=== PATIENT | female | born 1955 | race Caucasian/White ===

== ENCOUNTER → 2016-10-28 | Outpatient (CLI) | payer MEDICARE, MEDICAID | END | disposition home or self-care (01) | LOC: GMAJ 14:33 | PROVIDERS: ATTEND Family Medicine | DX: E03.9 Hypothyroidism, unspecified (principal) ==

== ENCOUNTER → 2016-11-02 | Outpatient (CLI) | payer MEDICARE, MEDICAID ==
--- NOTE | 2016-11-02 10:06 | MRI ---
EXAM DESCRIPTION: Cervical Spine CLINICAL HISTORY: 61 years, Female, RADICULOPATHY, neck pain radiating into both upper extremities, numbness in hands COMPARISON: None TECHNIQUE: Multiplanar multi sequence images of the cervical spine were obtained without gadolinium contrast. FINDINGS: There is loss of physiologic cervical lordosis. No vertebral body fracture or subluxation.There is no bone marrow edema. Alignment of the craniocervical junction is anatomic, and visualized portions of the brainstem and spinal cord are unremarkable. [The paraspinal soft tissues are unremarkable.] At C2-3, the intervertebral disc and facet joints are well maintained. At C3-4, there is only slight bilateral facet joint degeneration without posterior disc bulging, central canal or neuroforaminal stenosis. At C4-5, right-sided uncovertebral joint hypertrophy results in moderate right-sided neuroforaminal stenosis. There is mild anterior disc bulging without significant posterior disc bulging, facet joint degeneration or neuroforaminal stenosis. The central canal is at the lower limits of normal size, measuring 1 cm AP diameter. At C5-6, there is disc desiccation with anterior disc bulging. Mild broad-based posterior disco-osteophytic ridging is also noted. The facet joints are well maintained, but findings result in moderately advanced central canal and mild bilateral neuroforaminal stenosis. The central canal measures 7 or 8 mm AP diameter. At C6-7, there is anterior disc bulging. Broad-based posterior disco-osteophytic ridging is also noted. There is no facet joint hypertrophy, and findings result in moderate central canal and only slight bilateral neuroforaminal stenosis. At C7-T1, the intervertebral disc and facet joints are unremarkable. IMPRESSION: Broad-based posterior disco-osteophytic ridging with facet and/or uncovertebral joint hypertrophy at C4-5, C5-6 and C6-7 resulting in central canal and neuroforaminal stenosis as detailed above. Electronically signed by: Fredrick Julian MD 11/02/2016 10:06 AM DELI MANAGER
--- NOTE | 2016-11-02 10:12 | MRI ---
EXAM DESCRIPTION: Lumbar Spine w/o Contrast CLINICAL HISTORY: 61 years, Female, RADICULOPATHY low back pain COMPARISON: None TECHNIQUE: Multiplanar multi sequence images of the lumbar spine were obtained without gadolinium contrast. FINDINGS: Vertebral body height and alignment are well maintained. No bone marrow signal abnormalities are noted. The conus lies posterior to the L1 body, and the cauda equina is unremarkable. The paraspinal and visualized retroperitoneal soft tissues are unremarkable. At L1-2, there is disc desiccation with concentric disc bulging, most prominent anteriorly. Mild bilateral facet joint degeneration is also noted, but there is no central canal or neuroforaminal stenosis. At L2-3, there is disc desiccation with mild concentric disc bulging. Bilateral facet joint degeneration and ligament flavum thickening are also noted, all resulting in only slight bilateral neuroforaminal stenosis. No definite nerve root abutment. At L3-4, there is mild concentric disc bulging with bilateral facet joint degeneration and ligament thickening resulting in mild central canal and slight bilateral neuroforaminal stenosis. No definite nerve root abutment. At L4-5, there is bilateral facet joint degeneration with ligamentum flavum thickening. Minimal concentric disc bulging, all resulting in only mild central canal stenosis. At L5-S1, there is bilateral facet joint degeneration and ligamentum thickening. Slight concentric disc bulging, all without central canal or significant neuroforaminal stenosis. An osteophyte arises the anterior aspect of the left L5-S1 facet results in mass effect on the thecal sac and approaches but does not definitely abut the left S1 nerve root in the lateral recess. IMPRESSION: Disc bulging, facet joint degeneration and ligamentum flavum thickening at several levels in the lumbar spine resulting in mild central canal and neural foraminal stenosis as detailed above. No definite nerve root abutment. Electronically signed by: Fredrick Julian MD 11/02/2016 10:11 AM STUDIO COORDINATOR
== END | disposition home or self-care (01) ==
LOC: MRI 07:28
PROVIDERS: ATTEND Family Medicine
DX: M50.10 Cervical disc disorder with radiculopathy, unspecified cervical region (principal); M54.16 Radiculopathy, lumbar region

== ENCOUNTER 2016-11-20 17:42 | Emergency (ER) | payer MEDICARE, MEDICAID ==
[2016-11-20 17:59] VITALS: TEMP 99.2
[2016-11-20] MEDS ORDERED: POVIDONE IODINE 10 % 15 ML UD TOP ONE (18:49)
[2016-11-20] MEDS ORDERED: LIDOCAINE 1% W/ EPINEPHRINE 20 ML VIAL INJ ONE (18:49)
[2016-11-20] MEDS ORDERED: POVIDONE IODINE 5% TOP ONE (19:02)
[2016-11-20] MEDS ORDERED: LIDOCAINE 2% W/ EPINEPHRINE 20 ML VIAL INJ ONE (19:02)
--- NOTE | 2016-11-20 19:16 | CT ---
EXAM DESCRIPTION: Head CLINICAL HISTORY: fall/lac L forehead struck concrete step COMPARISON: None Available. TECHNIQUE: Contiguous axial images of the brain were obtained without the administration of intravenous contrast. FINDINGS: There is no acute intracranial hemorrhage or mass effect. Areas of low-attenuation within the periventricular and subcortical white matter are nonspecific but suggestive small vessel disease. There is atherosclerosis. Ventricular system is within normal limits. There is adequate dela cruz-white matter differentiation. There is a laceration within the left forehead. There is no skull fracture. The visualized paranasal sinuses and mastoid air cells are within normal limits. IMPRESSION: No acute intracranial abnormalities. Electronically signed by: Kane Em MD 11/20/2016 7:15 PM CDT
[2016-11-20] MEDS ORDERED: NEOMYCIN-BACITRACIN-POLYMYXIN 0.9 GM UD TOP ONE ×2 (19:47→19:48)
--- NOTE | 2016-11-20 20:14 | ED.PDOC ---
History of Present Illness - General Chief Complaint: Trauma Stated Complaint: HEAD LAC POST FALL Time Seen by Provider: 11/20/16 17:50 Source: patient, RN notes reviewed, Vital Signs reviewed Exam Limitations: no limitations - History of Present Illness Initial Comments: Patient tripped going up some stairs at home and hit her L forehead on the step. She has a cut to her L eyebrow and is feeling dizzy. No LOC Occurred: just prior to arrival Severity: moderate Pain Location: head Method of Injury: fall Improving Factors: cold therapy, other - pressure Worsening Factors: nothing Loss of Consciousness: no loss of consciousness Associated Symptoms (Fall): lightheadedness Allergies/Adverse Reactions: Allergies NO KNOWN ALLERGY Allergy (Verified 01/09/14 07:47) Home Medications: Ambulatory Orders Alprazolam 0.25 mg PO PRN 01/08/14 Alprazolam [Xanax] 0.25 mg PO .[id number] PRN 01/08/14 Amlodipine Besylate 5 mg PO DAILY 01/08/14 Calcium Carbonate-Vitamin D [Calcium 600+D 600-400 mg-Unit] 2 tab PO DAILY 01/08 Hydrochlorothiazide 12.5 mg PO DAILY 01/08/14 Levothyroxine Sodium 175 mcg PO DAILY 01/08/14 Memantine [Namenda] 10 mg PO DAILY 01/08/14 Metoprolol Succinate [Metoprolol Succinate ER] 100 mg PO DAILY 01/08/14 Omeprazole 20 mg PO BID 01/08/14 Valsartan [Diovan] 320 mg PO DAILY 01/08/14 Venlafaxine Xr [Effexor Xr] 150 mg PO DAILY 01/08/14 HYDROcodone 5MG/APAP 325MG [[place] 5/325] 1 ea PO .Q4H PRN #16 tab 03/19/14 Rivaroxaban [Xarelto] 10 mg PO QD #8 tab 06/04/15 Review of Systems - Review of Systems Constitutional: States: no symptoms reported EENTM: States: no symptoms reported. Denies: blurred vision, double vision, ear discharge, nose congestion Respiratory: States: no symptoms reported Cardiology: States: no symptoms reported Gastrointestinal/Abdominal: States: no symptoms reported. Denies: nausea Musculoskeletal: States: no symptoms reported. Denies: back pain, neck pain Skin: States: see HPI, other - 3cm lac to L eyebrow Neurological: States: other - Dizziness. Denies: headache, numbness, paresthesia, pre-existing deficit, tingling, tremors, weakness Endocrine: States: no symptoms reported Past Medical History (General) - Patient Medical History Hx Seizures: No Hx Stroke: Yes - x2 tia's Hx Dementia: Yes Hx Asthma: No Hx of COPD: No Hx Cardiac Disorders: No Hx Congestive Heart Failure: Yes Hx Pacemaker: No Hx Hypertension: No Hx Thyroid Disease: Yes Hx Diabetes: Yes Hx Gastroesophageal Reflux: Yes Hx Renal Disease: No Hx Cancer: Yes - BASAL OF LEFT EYE Hx of HIV: No Hx Hepatitis C: No Hx MRSA: No MRSA Source:: Wound Surgical History: cholecystectomy, Hysterectomy - Vaccination History Hx Tetanus, Diphtheria Vaccination: Yes Hx Influenza Vaccination: Yes Hx Pneumococcal Vaccination: Yes - Social History Hx Tobacco Use: Yes Hx Chewing Tobacco Use: No Hx Alcohol Use: No Hx Substance Use: No Hx Substance Use Treatment: No Hx Depression: Yes Hx Physical Abuse: No Hx Emotional Abuse: No Hx Suspected Abuse: No - Female History Patient : No Family Medical History - Family History Father Living Status: Age at (years of age): 57 Hx Family Stroke: Yes Hx Cardiac Disease: Yes Mother Living Status: Age at (years of age): 39 Hx Family Asthma: Yes Hx Family Congestive Heart Failure: Yes Physical Exam - Physical Exam General Appearance: Alert, Comfortable, No apparent distress, Well Developed, Well Groomed, Well Hydrated, Well Nourished Head Injury: active bleeding, ecchymosis, lacerations - 3cm lac to L eyebrow, swelling, tenderness, other - No lira sign, no raccoon eyes Eye Exam: bilateral normal ENT Exam: hearing grossly normal, no dental injury, other - No blood behind TM's Neck Exam: non-tender, full range of motion, normal alignment, normal inspection Cardiovascular/Respiratory: regular rate, rhythm, no M/R/G, no JVD, normal breath sounds, no respiratory distress Extremity Exam: no evidence of injury, normal range of motion, non-tender Neurologic: special agent II-XII nml as tested, no motor/sensory deficits, alert, normal mood/affect, oriented x 3 Skin Exam: other - L eyebrow - 3 cm laceration - Bernadetet Coma Score Best Eye Response (Sells): (4) open spontaneously Best Verbal Response (Bernadette): (5) oriented Best Motor Response (Sells): (6) obeys commands Bernadette Total: 15 Progress - EKG/XRAY/CT CT Ordered: Yes Procedures - Laceration/Wound Repair Left Frontal Wound Length (cm): 3 Wound's Depth, Shape: superficial, linear Wound Explored: no foreign body removed Betadine Prep?: Yes Anesthesia: Lidocaine w/ Epi Volume Anesthetic (cc's): 5 Wound Debrided: minimal Wound Repaired With: sutures Suture Size/Type: 5:0, prolene Number of Sutures: 8 Layer Closure?: No Sterile Dressing Applied?: Yes - Antibiotic oint and pressure dressing Departure - Departure Clinical Impression: Laceration of face without complication Qualifiers: Encounter type: initial encounter Qualifier Code: (S01.81XA) Laceration without foreign body of other part of head, initial encounter Time of Disposition: 20:17 Disposition: Discharge to Home or Self Care Condition: Good Departure Forms: ED Discharge - Pt. Copy, Patient Portal Self Enrollment Instructions: DI for Laceration Repair -- Simple Diet: resume usual diet Activity: increase activity as tolerated Referrals: Florian Chinchilla MD [Primary Care Provider] - 11/26/16 (5-7 days for suture removal) Home Medications: Ambulatory Orders Alprazolam 0.25 mg PO PRN 01/08/14 Alprazolam [Xanax] 0.25 mg PO .[id number] PRN 01/08/14 Amlodipine Besylate 5 mg PO DAILY 01/08/14 Calcium Carbonate-Vitamin D [Calcium 600+D 600-400 mg-Unit] 2 tab PO DAILY 01/08 Hydrochlorothiazide 12.5 mg PO DAILY 01/08/14 Levothyroxine Sodium 175 mcg PO DAILY 01/08/14 Memantine [Namenda] 10 mg PO DAILY 01/08/14 Metoprolol Succinate [Metoprolol Succinate ER] 100 mg PO DAILY 01/08/14 Omeprazole 20 mg PO BID 01/08/14 Valsartan [Diovan] 320 mg PO DAILY 01/08/14 Venlafaxine Xr [Effexor Xr] 150 mg PO DAILY 01/08/14 HYDROcodone 5MG/APAP 325MG [[place] 5/325] 1 ea PO .Q4H PRN #16 tab 03/19/14 Rivaroxaban [Xarelto] 10 mg PO QD #8 tab 06/04/15
[2016-11-20 20:58] VITALS: BP 132/77; O2SAT 99
== END 2016-11-20 20:28 | disposition home or self-care (01) ==
LOC: ER 17:42
DX: S01.112A Laceration without foreign body of left eyelid and periocular area, initial encounter (principal); E07.9 Disorder of thyroid, unspecified; E11.9 Type 2 diabetes mellitus without complications; K21.9 Gastro-esophageal reflux disease without esophagitis; Z85.840 Personal history of malignant neoplasm of eye; Z86.73 Personal history of transient ischemic attack (TIA), and cerebral infarction without residual deficits; Z87.891 Personal history of nicotine dependence; Z79.899 Other long term (current) drug therapy; Z79.01 Long term (current) use of anticoagulants; W10.9XXA Fall (on) (from) unspecified stairs and steps, initial encounter; Y92.009 Unspecified place in unspecified non-institutional (private) residence as the place of occurrence of the external cause

== ENCOUNTER 2016-12-07 08:55 | Day surgery (SDC) | payer MEDICARE, MEDICAID ==
[2016-12-07 13:30] VITALS: O2SAT 98
[2016-12-07] MEDS ORDERED: LIDOCAINE 1% MPF 5 ML VIAL INJ ONE ×2 (14:08→14:10)
[2016-12-07] MEDS ORDERED: SODIUM BICARBONATE VIAL 50 MEQ/50 ML VIAL IV ONE (14:08)
[2016-12-07] MEDS ORDERED: SODIUM CHLORIDE 0.9% 10 ML VIAL INJ ONE (14:10)
[2016-12-07] MEDS ORDERED: methylPREDNISolone ACETATE 80 MG/ML VIAL INJ ONE (14:10)
[2016-12-07 14:29] VITALS: BP 150/112; TEMP 98.6
== END 2016-12-07 14:20 | disposition home or self-care (01) ==
LOC: AMB 08:55 → YCFC.O 08:55 → EDSTATUS 14:09 → AMB 14:20
PROVIDERS: ATTEND Anesthesiology Pain Medicine
DX: M54.5 Low back pain (principal); M51.16 Intervertebral disc disorders with radiculopathy, lumbar region; F17.210 Nicotine dependence, cigarettes, uncomplicated; E11.9 Type 2 diabetes mellitus without complications; I10 Essential (primary) hypertension; M50.30 Other cervical disc degeneration, unspecified cervical region; Z79.899 Other long term (current) drug therapy; Z79.891 Long term (current) use of opiate analgesic
CPT/HCPCS: 62323; 76000; 80307; 80354; 80358; 80365; J1030

== ENCOUNTER 2017-01-04 06:00 | Day surgery (SDC) | payer MEDICARE, MEDICAID ==
[2017-01-04] MEDS ORDERED: SODIUM CHLORIDE 0.9% 10 ML VIAL ONE (11:16)
[2017-01-04] MEDS ORDERED: methylPREDNISolone ACETATE 80 MG/ML VIAL ONE (11:16)
[2017-01-04] MEDS ORDERED: SODIUM BICARBONATE VIAL 50 MEQ/50 ML VIAL ONE (11:16)
[2017-01-04] MEDS: LIDOCAINE 1% MPF 5 ML VIAL ONE ×2 (13:06→13:08)
[2017-01-04 13:19] VITALS: BP 126/76; TEMP 97; O2SAT 97
== END 2017-01-04 13:20 | disposition home or self-care (01) ==
LOC: AMB 06:00
PROVIDERS: ATTEND Anesthesiology Pain Medicine
DX: M51.16 Intervertebral disc disorders with radiculopathy, lumbar region (principal); M54.5 Low back pain
CPT/HCPCS: 62323; 76000; J1030

== ENCOUNTER → 2017-03-15 | Outpatient (CLI) | payer MEDICARE, MEDICAID | LOC: GMAJ 10:13 | PROVIDERS: ATTEND Family Medicine | DX: E03.9 Hypothyroidism, unspecified (principal) ==

== ENCOUNTER → 2017-05-04 | Outpatient (CLI) | payer MEDICARE, MEDICAID | END | disposition home or self-care (01) | LOC: GMAJ 14:28 | PROVIDERS: ATTEND Family Medicine | DX: E03.9 Hypothyroidism, unspecified (principal) ==

== ENCOUNTER 2017-06-04 16:50 | Emergency (ER) | payer MEDICARE, MEDICAID ==
[2017-06-04 17:13] VITALS: TEMP 97.1
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
[2017-06-04] MEDS ORDERED: LIDOCAINE 1% 10 ML VIAL INJ ONE (17:33)
[2017-06-04] MEDS ORDERED: traMADol 37.5MG/APAP 325MG 1 EA TAB PO ONE (17:50)
--- NOTE | 2017-06-04 18:03 | CT ---
EXAM DESCRIPTION: Head CLINICAL HISTORY: HEAD TRAUMA COMPARISON: April 22, 2017 TECHNIQUE: Contiguous axial images of the brain were obtained without the administration of intravenous contrast.This exam was performed according to our departmental dose-optimization program, which includes automated exposure control, adjustment of the mA and/or kV according to patient size and/or use of iterative reconstruction technique. FINDINGS: There is no acute intracranial hemorrhage or mass effect. Areas of low attenuation in the periventricular and subcortical white matter are nonspecific but be secondary to small vessel disease, unchanged compared with the prior exam. There is atherosclerosis. There is an old lacunar infarct within the left basal ganglia. There is generalized atrophy. Ventricular system is within normal limits. There is adequate dela cruz-white matter differentiation. There is no skull fracture. The visualized paranasal sinuses and mastoid air cells are within normal limits. IMPRESSION: Stable examination. No acute intracranial abnormalities. Electronically signed by: Kane Em MD 06/04/2017 6:01 PM CDT
[2017-06-04] MEDS ORDERED: TETANUS-DIPHTHERIA TOXOIDS (TD 1 EA SYG IM ONE (18:05)
--- NOTE | 2017-06-04 18:07 | CT ---
EXAM DESCRIPTION: CT CERVICAL SPINE CLINICAL HISTORY: HEAD TRAUMA COMPARISON: None Available. TECHNIQUE: Contiguous axial images of the cervical spine were obtained followed by reconstruction images.This exam was performed according to our departmental dose-optimization program, which includes automated exposure control, adjustment of the mA and/or kV according to patient size and/or use of iterative reconstruction technique. FINDINGS: There is no acute fracture or subluxation. There is intervertebral disc space narrowing and osteophytic formation at C5-C6, C6-C7 and C7-T1. There is right neural foramina narrowing at C4-C5, and bilateral neural foramina narrowing at C5-C6. The prevertebral soft tissues are within normal limits. Visualized ascending aorta measured 4.1 cm. Recommend further imaging as indicated. IMPRESSION: No acute fracture or subluxation. Degenerative changes. Electronically signed by: Kane Em MD 06/04/2017 6:05 PM CDT
[2017-06-04] MEDS ORDERED: TETANUS,DIPHTHERIA,PERTUSSIS 1 EA SYG IM ONE (18:19)
[2017-06-04] MEDS ORDERED: NEOMYCIN-BACITRACIN-POLYMYXIN 0.9 GM UD TOP ONE (18:27)
[2017-06-04 18:38] VITALS: BP 160/92; O2SAT 92
== END 2017-06-04 18:35 | disposition home or self-care (01) ==
LOC: ER 16:50
DX: S01.01XA Laceration without foreign body of scalp, initial encounter (principal); I10 Essential (primary) hypertension; E11.9 Type 2 diabetes mellitus without complications; K21.9 Gastro-esophageal reflux disease without esophagitis; Z23 Encounter for immunization; Z86.73 Personal history of transient ischemic attack (TIA), and cerebral infarction without residual deficits; Z85.89 Personal history of malignant neoplasm of other organs and systems; W20.8XXA Other cause of strike by thrown, projected or falling object, initial encounter; Y92.9 Unspecified place or not applicable

== ENCOUNTER 2017-06-12 17:51 | Emergency (ER) | payer MEDICARE, MEDICAID ==
[2017-06-12 18:03] VITALS: TEMP 98.8
[2017-06-12] MEDS ORDERED: PANTOPRAZOLE SODIUM IV 40 MG VIAL IV ONE (18:10)
[2017-06-12] MEDS ORDERED: LIDOCAINE VIS-MYLANTA 30 ML UD PO ONE (18:10)
[2017-06-12] MEDS ORDERED: ONDANSETRON INJ 4 MG/2 ML VIAL IV ONE (18:26)
[2017-06-12] MEDS ORDERED: PROMETHAZINE HCL INJ 25 MG in SODIUM CHLORIDE 0.9% 50ML 50 ML IVPB ONE (19:04)
[2017-06-12] MEDS ORDERED: PROMETHAZINE HCL INJ 25 MG/ML VIAL ONE (19:12)
[2017-06-12] MEDS ORDERED: SODIUM CHLORIDE 0.9% 50ML 50 ML ONE (19:13)
[2017-06-12] MEDS ORDERED: SUCRALFATE 1 GM/10 ML 1 GM UD PO ONE (19:15)
--- NOTE | 2017-06-12 19:27 | RAD ---
EXAM: Abdomen Series CLINICAL INDICATION: 61-year-old female with chest and abdominal pain. TECHNIQUE: Single view, PA chest was obtained. Two views of the abdomen were obtained in upright and supine positioning. COMPARISON: Chest radiograph 01/08/2014. FINDINGS: Chest: Stable prominent cardiac and mediastinal silhouette. Heart size is top normal. Tortuous atherosclerotic thoracic aorta. Lungs are clear without focal opacity, pneumothorax or pleural effusions. Elevation of the RIGHT hemidiaphragm. Abdomen: Gas is seen within normal caliber large bowel. Diffuse paucity of small bowel gas. No free air is identified. Pelvic phleboliths. LEFT upper quadrant surgical sutures and cholecystectomy clips at the RIGHT upper quadrant. The osseous structures reveal degenerative change. IMPRESSION: 1. No acute cardiopulmonary abnormalities. 2. Nonspecific abdominal bowel gas pattern. Electronically signed by: Yolanda Blackwood MD 06/12/2017 7:26 PM CDT Workstation: [id number]
[2017-06-12] MEDS ORDERED: ALUMINUM & MAGNESIUM HYDROXIDE 30 ML UD PO ONE (21:27)
[2017-06-12 22:05] VITALS: BP 128/80; O2SAT 97
--- NOTE | 2017-06-12 22:14 | ED.PDOC ---
History of Present Illness - General Chief Complaint: Chest Pain/NE Stated Complaint: Chest pressure Time Seen by Provider: 06/12/17 17:56 Source: patient Exam Limitations: no limitations - History of Present Illness Initial Comments: the patient is a 61-year-old female presenting to the emergency room secondary toa sensation of chest and epigastric discomfort. The episode started after she had been standing for a while talking with her daughter. She started to feel weak and broke out into a sweat. She started to have some mild substernal chest discomfort with some mild associated shortness of breath. it was associated with some nausea. It was still somewhat present upon arrival here to the emergency room. She did get some significant relief with a GI cocktail. On exam here was the discomfort was actually in the epigastric area. Of significance is that she has had a gastric bypass surgery in the past and is not taking any form of an acid reducing medication. She did actually throw up here in the emergency room. the patient is feeling significantly better after GI medications and some anti-emetics. Vital signs have remained stable. She has remained in normal sinus rhythm. No hypoxia. She has not had any leg pain or swelling. Timing/Duration: 1/2 hour Severity: moderate Improving Factors: rest Worsening Factors: nothing Associated Symptoms: chest pain, diaphoresis, loss of appetite, malaise, nausea/ vomiting, shortness of breath Allergies/Adverse Reactions: Allergies NO KNOWN ALLERGY Allergy (Verified 06/12/17 18:03) Home Medications: Ambulatory Orders Alprazolam 0.25 mg PO PRN 01/08/14 Alprazolam [Xanax] 0.25 mg PO .[id number] PRN 01/08/14 Amlodipine Besylate 5 mg PO DAILY 01/08/14 Calcium Carbonate-Vitamin D [Calcium 600+D 600-400 mg-Unit] 2 tab PO DAILY 01/08 Hydrochlorothiazide 12.5 mg PO DAILY 01/08/14 Levothyroxine Sodium 175 mcg PO DAILY 01/08/14 Memantine [Namenda] 10 mg PO DAILY 01/08/14 Metoprolol Succinate [Metoprolol Succinate ER] 100 mg PO DAILY 01/08/14 Omeprazole 20 mg PO BID 01/08/14 Valsartan [Diovan] 320 mg PO DAILY 01/08/14 Venlafaxine Xr [Effexor Xr] 150 mg PO DAILY 01/08/14 HYDROcodone 5MG/APAP 325MG [[place] 5/325] 1 ea PO .Q4H PRN #16 tab 03/19/14 Rivaroxaban [Xarelto] 10 mg PO QD #8 tab 06/04/15 Famotidine 20 mg PO BID #60 tab 06/12/17 Sucralfate Tab [Carafate Tab] 1 gm PO QID #120 tab 06/12/17 Review of Systems - Review of Systems Constitutional: States: malaise EENTM: States: no symptoms reported Respiratory: States: short of breath - ild Cardiology: States: chest pain - substernal mild Gastrointestinal/Abdominal: States: abdominal pain, nausea, vomiting Genitourinary: States: no symptoms reported Musculoskeletal: States: no symptoms reported Skin: States: no symptoms reported Neurological: States: no symptoms reported Endocrine: States: no symptoms reported All other Systems: No Change from Baseline Past Medical History (General) - Patient Medical History Hx Seizures: No Hx Stroke: Yes - TIA - last episode 2006 Hx Dementia: Yes Hx Asthma: No Hx of COPD: No Hx Cardiac Disorders: No Hx Congestive Heart Failure: Yes Hx Pacemaker: No Hx Hypertension: Yes Hx Thyroid Disease: Yes Hx Diabetes: No Hx Gastroesophageal Reflux: Yes Hx Renal Disease: No Hx Cancer: Yes - skin cancers Hx of HIV: No Hx Hepatitis C: No Hx MRSA: No MRSA Source:: Wound Surgical History: appendectomy, cholecystectomy, gastric bypass, Hysterectomy - Vaccination History Hx Tetanus, Diphtheria Vaccination: Yes Hx Influenza Vaccination: Yes - 2016 Hx Pneumococcal Vaccination: No - Social History Hx Tobacco Use: Yes - Quit 04/2017 Hx Chewing Tobacco Use: No Hx Alcohol Use: No Hx Substance Use: No Hx Substance Use Treatment: No Hx Depression: Yes Hx Physical Abuse: No Hx Emotional Abuse: No Hx Suspected Abuse: No - Female History Patient : No Family Medical History - Family History Father Living Status: Age at (years of age): 57 Hx Family Stroke: Yes Hx Cardiac Disease: Yes Mother Living Status: Age at (years of age): 39 Hx Family Asthma: Yes Hx Family Congestive Heart Failure: Yes Physical Exam - Physical Exam General Appearance: Alert, No apparent distress Eye Exam: bilateral normal Ears, Nose, Throat: hearing grossly normal, normal ENT inspection, normal pharynx Neck: non-tender, full range of motion, supple Respiratory: chest non-tender, lungs clear, normal breath sounds, no respiratory distress, no accessory muscle use Cardiovascular/Chest: normal peripheral pulses, regular rate, rhythm, no edema Peripheral Pulses: radial,right: 2+, radial,left: 2+, dorsalis pedis,right: 2+, dorsalis pedis,left: 2+ Gastrointestinal/Abdominal: soft, other - there is significant epigastric discomfort to palpation but no true rebound or peritoneal signs. 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, alert, normal mood/affect, oriented x 3 Skin Exam: normal color Comments: Vital Signs (72 hours) 06/12/17 06/12/17 06/12/17 17:55 19:51 20:00 Temperature 98.8 F Pulse Rate [ 78 76 61 Apical] Respiratory 26 H 20 17 Rate Blood Pressure 150/94 136/87 131/76 [Left Arm] O2 Sat by Pulse 97 94 L Oximetry 06/12/17 06/12/17 21:00 22:00 Temperature Pulse Rate [ 62 53 L Apical] Respiratory 15 16 Rate Blood Pressure 119/85 128/80 [Left Arm] O2 Sat by Pulse 97 Oximetry Progress - Progress Progress: 06/12/17 22:16 the patient is a 61-year-old female presenting with symptoms of epigastric and substernal discomfort. This appears to more likely be related to gastritis issues in relation probably to her previous gastric bypass surgery. There is no evidence of perforation. The patient has responded well to antiemetics and acid reducing medication. 2 sets of cardiac enzymes are negative and the EKG is reassuring. The patient is symptom-free at this time. she should keep her already scheduled follow-up with cardiology. The patient is going to be placed on Carafate for the next month as well as Pepcid for the next month. She should also scrap picker some Maalox for as needed use over the next few days. ER warnings were given for any worsening. She should otherwise follow up with her primary care doctor early this coming week. - Results/Orders Results/Orders: EKG shows normal sinus rhythm. There is a long-standing left axis deviation. R -wave progression is fairly normal. No definitive ST segment changes concerning for ischemia. QT interval is borderline. Acute abdominal series shows no evidence of any free air. There is no obstruction. There is moderate stool. Heart size is borderline normal. There is significant aortic tortuosity. Laboratory Tests 06/12/17 06/12/17 06/12/17 18:05 18:05 18:05 WBC 9.8 RBC 4.38 Hgb 13.5 Hct 39.8 MCV 90.8 MCH 30.8 MCHC 33.9 RDW 13.3 Plt Count 235 MPV 8.7 Absolute Neuts (auto) 6.90 H Absolute Lymphs (auto) 1.90 Absolute Monos (auto) 0.80 Absolute Eos (auto) 0.20 Absolute Basos (auto) 0.10 Neutrophils % 70.5 Lymphocytes % 19.3 L Monocytes % 7.9 Eosinophils % 1.7 Basophils % 0.6 PT 10.8 INR 0.960 PTT (SP) 28.7 D-Dimer, Quantitative 292 H* Sodium 138 Potassium 3.8 Chloride 105 Carbon Dioxide 24 Anion Gap 12.8 BUN 13 Creatinine 1.36 H BUN/Creatinine Ratio 9.6 L Random Glucose 101 Serum Osmolality 275.9 Calcium 9.2 Magnesium 1.9 Total Bilirubin 0.6 AST 24 ALT 17 Alkaline Phosphatase 89 Creatine Kinase 43 CK-MB (CK-2) 1.2 CK-MB (CK-2) % Not Reportable Troponin I < 0.02 B-Natriuretic Peptide 39.8 Serum Total Protein 7.3 Albumin 4.1 Globulin 3.2 Albumin/Globulin Ratio 1.3 Amylase 70 Lipase 36 TSH 06/12/17 06/12/17 18:05 21:30 WBC RBC Hgb Hct MCV MCH MCHC RDW Plt Count MPV Absolute Neuts (auto) Absolute Lymphs (auto) Absolute Monos (auto) Absolute Eos (auto) Absolute Basos (auto) Neutrophils % Lymphocytes % Monocytes % Eosinophils % Basophils % PT INR PTT (SP) D-Dimer, Quantitative Sodium Potassium Chloride Carbon Dioxide Anion Gap BUN Creatinine BUN/Creatinine Ratio Random Glucose Serum Osmolality Calcium Magnesium Total Bilirubin AST ALT Alkaline Phosphatase Creatine Kinase 37 CK-MB (CK-2) 0.9 CK-MB (CK-2) % Not Reportable Troponin I < 0.02 B-Natriuretic Peptide Serum Total Protein Albumin Globulin Albumin/Globulin Ratio Amylase Lipase TSH 1.13 Departure - Departure Clinical Impression: Gastritis Qualifiers: Gastritis type: unspecified gastritis Chronicity: acute Gastritis bleeding: without bleeding Qualified Code(s): K29.00 - Acute gastritis without bleeding Disposition: Discharge to Home or Self Care Condition: Fair Departure Forms: ED Discharge - Pt. Copy, Patient Portal Self Enrollment Instructions: DI for Gastritis Diet: bland diet Activity: increase activity as tolerated Referrals: Florian Chinchilla MD [Primary Care Provider] - 1-2 Weeks Prescriptions: Famotidine 20 mg PO BID #60 tab Sucralfate Tab [Carafate Tab] 1 gm PO QID #120 tab Home Medications: Ambulatory Orders Alprazolam 0.25 mg PO PRN 01/08/14 Alprazolam [Xanax] 0.25 mg PO .[id number] PRN 01/08/14 Amlodipine Besylate 5 mg PO DAILY 01/08/14 Calcium Carbonate-Vitamin D [Calcium 600+D 600-400 mg-Unit] 2 tab PO DAILY 01/08 Hydrochlorothiazide 12.5 mg PO DAILY 01/08/14 Levothyroxine Sodium 175 mcg PO DAILY 01/08/14 Memantine [Namenda] 10 mg PO DAILY 01/08/14 Metoprolol Succinate [Metoprolol Succinate ER] 100 mg PO DAILY 01/08/14 Omeprazole 20 mg PO BID 01/08/14 Valsartan [Diovan] 320 mg PO DAILY 01/08/14 Venlafaxine Xr [Effexor Xr] 150 mg PO DAILY 01/08/14 HYDROcodone 5MG/APAP 325MG [[place] 5/325] 1 ea PO .Q4H PRN #16 tab 03/19/14 Rivaroxaban [Xarelto] 10 mg PO QD #8 tab 06/04/15 Famotidine 20 mg PO BID #60 tab 06/12/17 Sucralfate Tab [Carafate Tab] 1 gm PO QID #120 tab 06/12/17 Additional Instructions: the patient is a 61-year-old female presenting with symptoms of epigastric and substernal discomfort. This appears to more likely be related to gastritis issues in relation probably to her previous gastric bypass surgery. There is no evidence of perforation. The patient has responded well to antiemetics and acid reducing medication. 2 sets of cardiac enzymes are negative and the EKG is reassuring. The patient is symptom-free at this time. she should keep her already scheduled follow-up with cardiology. The patient is going to be placed on Carafate for the next month as well as Pepcid for the next month. She should also scrap picker some Maalox for as needed use over the next few days. ER warnings were given for any worsening. She should otherwise follow up with her primary care doctor early this coming week.
== END 2017-06-12 22:25 | disposition home or self-care (01) ==
LOC: ER 17:51
DX: K29.00 Acute gastritis without bleeding (principal); I10 Essential (primary) hypertension; E07.9 Disorder of thyroid, unspecified; K21.9 Gastro-esophageal reflux disease without esophagitis; Z87.891 Personal history of nicotine dependence; Z86.73 Personal history of transient ischemic attack (TIA), and cerebral infarction without residual deficits; F03.90 Unspecified dementia, unspecified severity, without behavioral disturbance, psychotic disturbance, mood disturbance, and anxiety
CPT/HCPCS: 36415; 74020; 80053; 82150; 82550; 82553; 83690; 83735; 83880; 84443; 84484; 85025; 85379; 85610; 85730; 93005; A4216; J2405; J2550

== ENCOUNTER → 2017-08-03 | Outpatient (CLI) | payer MEDICARE, MEDICAID | END | disposition home or self-care (01) | LOC: GMAJ 10:53 | PROVIDERS: ATTEND Family Medicine | DX: E03.9 Hypothyroidism, unspecified (principal) ==

== ENCOUNTER → 2017-11-04 | Outpatient (CLI) | payer MEDICARE, MEDICAID ==
--- NOTE | 2017-11-04 20:32 | MRI ---
EXAM DESCRIPTION: Lumbar Spine w/o Contrast MRI. CLINICAL HISTORY: LOW BACK PAIN COMPARISON: MRI lumbar spine without contrast 11/02/2016. TECHNIQUE: Multiplanar, multiple standard sequences, non contrast MRI, lumbar spine. FINDINGS: L5-S1: Minimal disc desiccation. No significant disc bulge. Minimal facet arthrosis bilaterally and ligament hypertrophy narrowing the transverse diameter of the canal. Bilateral foramina are patent. L4-5: Disc desiccation and grade 1 anterolisthesis. Mild right foraminal narrowing with disc bulge into the foramen. Mild canal narrowing and left foramen is patent. Bilateral facet arthrosis and flavum hypertrophy more on the left. L3-4: Disc desiccation no significant posterior bulging. Bilateral mild to moderate facet arthrosis and flavum ligament hypertrophy with mild canal narrowing. Minimal disc bulge into the foramina with mild foraminal narrowing. L2-3: Disc desiccation and anterior right side bulge with endplate ridging. No posterior disc bulging. Bilateral facet arthrosis and flavum ligament hypertrophy. Mild canal narrowing. L1-2: Disc desiccation and disc space loss. Anterior bulging and endplate ridging. Trace retrolisthesis. Posterior elements are unremarkable. Mild narrowing of the right foramen. Canal and foramina are patent. T12-L1: Disc desiccation and anterior bulging and endplate ridging. Trace retrolisthesis with posterior bulging. Canal narrowing. Conus terminates just below the disc space. Bilateral foramina are patent. Posterior elements unremarkable. Paravertebral soft tissues with minimal muscle atrophy ectasia of the abdominal aorta. Transverse diameter at the L1-2 disc space level is 2.6 cm.. Normal marrow signal in the remaining vertebral bodies and the posterior elements. Vertebral bodies are not compressed at any level. IMPRESSION: 1. Canal narrowing at multiple levels secondary to disc bulging and hypertrophy of the posterior flavum ligaments and facet arthrosis. Also trace anterolisthesis at L4-5 and L3-4. Neural foraminal narrowing at multiple levels. No canal or neural foraminal stenosis. Stable since the prior study. Electronically signed by: Luis Almanza MD 11/04/2017 8:32 PM [facility]
== END ==
LOC: MRI 10:58
PROVIDERS: ATTEND Family Medicine
DX: M51.26 Other intervertebral disc displacement, lumbar region (principal); M25.552 Pain in left hip

== ENCOUNTER → 2017-12-22 | Outpatient (CLI) | payer MEDICARE, MEDICAID | LOC: GMATM 16:28 | PROVIDERS: ATTEND Nurse Practitioner Family | DX: D51.3 Other dietary vitamin B12 deficiency anemia (principal); R06.02 Shortness of breath; R53.83 Other fatigue; N39.0 Urinary tract infection, site not specified ==

== ENCOUNTER → 2018-03-07 | Outpatient (CLI) | payer MEDICARE, MEDICAID | LOC: GMAJS 15:10 | PROVIDERS: ATTEND Physician Assistant | DX: D51.3 Other dietary vitamin B12 deficiency anemia (principal) ==

== ENCOUNTER 2018-06-03 19:00 | Emergency (ER) | payer MEDICARE, MEDICAID ==
[2018-06-03 19:23] VITALS: TEMP 98.7
--- NOTE | 2018-06-03 19:32 | ED.PDOC ---
History of Present Illness - General Chief Complaint: Neuro Symptoms/Deficits Stated Complaint: Possible concussion-post fall Time Seen by Provider: 06/03/18 19:20 Source: patient Exam Limitations: no limitations - History of Present Illness Initial Comments: Maryjane Nolan 62 y/o female stated fell last night as she was getting up and go to the bathroom and head hitting the wooden sidetable had dizziness and vomiting 4 x after incident and still feeling dizzy today.No LOC,remembers incident,no weakness,no blurry vision no dysart.hia.Standing BP-87/56 Timing/Duration: 24 hours Severity: moderate Improving Factors: nothing Worsening Factors: nothing Associated Symptoms: other - see hpi Allergies/Adverse Reactions: Allergies NO KNOWN ALLERGY Allergy (Verified 06/12/17 18:03) Home Medications: Ambulatory Orders Alprazolam 0.25 mg PO PRN 01/08/14 Alprazolam [Xanax] 0.25 mg PO .[id number] PRN 01/08/14 Amlodipine Besylate 5 mg PO DAILY 01/08/14 Calcium Carbonate-Vitamin D [Calcium 600+D 600-400 mg-Unit] 2 tab PO DAILY 01/08 Hydrochlorothiazide 12.5 mg PO DAILY 01/08/14 Levothyroxine Sodium 175 mcg PO DAILY 01/08/14 Memantine [Namenda] 10 mg PO DAILY 01/08/14 Metoprolol Succinate [Metoprolol Succinate ER] 100 mg PO DAILY 01/08/14 Omeprazole 20 mg PO BID 01/08/14 Valsartan [Diovan] 320 mg PO DAILY 01/08/14 Venlafaxine Xr [Effexor Xr] 150 mg PO DAILY 01/08/14 HYDROcodone 5MG/APAP 325MG [[place] 5/325] 1 ea PO .Q4H PRN #16 tab 03/19/14 Rivaroxaban [Xarelto] 10 mg PO QD #8 tab 06/04/15 Famotidine 20 mg PO BID #60 tab 06/12/17 Sucralfate Tab [Carafate Tab] 1 gm PO QID #120 tab 06/12/17 Review of Systems - Review of Systems Constitutional: States: no symptoms reported EENTM: States: no symptoms reported Respiratory: States: no symptoms reported Cardiology: States: no symptoms reported Gastrointestinal/Abdominal: States: no symptoms reported Genitourinary: States: no symptoms reported Skin: States: no symptoms reported Neurological: States: other - dizziness Hematologic/Lymphatic: States: no symptoms reported Past Medical History (General) - Patient Medical History Hx Seizures: No Hx Stroke: No Hx Dementia: No Hx Asthma: No Hx of COPD: No Hx Cardiac Disorders: No Hx Congestive Heart Failure: No Hx Pacemaker: No Hx Hypertension: Yes Hx Thyroid Disease: Yes Hx Diabetes: Yes - Type 2 Hx Gastroesophageal Reflux: No Hx Renal Disease: No Hx Cancer: Yes - skin cancers Hx of HIV: No Hx Hepatitis C: No Hx MRSA: No Hx Other PMH: Yes - Menieres disease MRSA Source:: Wound Surgical History: cholecystectomy, Hysterectomy - Vaccination History Hx Tetanus, Diphtheria Vaccination: Yes Hx Influenza Vaccination: Yes - 2017 Hx Pneumococcal Vaccination: No - Social History Hx Tobacco Use: Yes Hx Chewing Tobacco Use: No Hx Alcohol Use: No Hx Substance Use: No Hx Substance Use Treatment: No Hx Depression: Yes Hx Physical Abuse: No Hx Emotional Abuse: No Hx Suspected Abuse: No - Activities of Daily Living Grooming Ability: Independent Eating (Feeding) Ability: Independent - Female History Patient : No - Triage Comment ED Triage Comment: Patient states she had fallen 2 nights ago and is still having dizzy spells from her fall. She states she hit her head on furniture when she fell. Believes she may have obtained a concussion Family Medical History - Family History Father Living Status: Age at (years of age): 57 Hx Family Stroke: Yes Hx Cardiac Disease: Yes Mother Living Status: Age at (years of age): 39 Hx Family Asthma: Yes Hx Family Congestive Heart Failure: Yes Physical Exam - Physical Exam General Appearance: Alert, Comfortable, Other - speech fluent Eye Exam: bilateral normal Ears, Nose, Throat: hearing grossly normal, normal ENT inspection, normal pharynx Neck: non-tender, full range of motion, supple, normal inspection Respiratory: chest non-tender, lungs clear, normal breath sounds Cardiovascular/Chest: regular rate, rhythm, no murmur Peripheral Pulses: radial,right: 2+, radial,left: 2+ Gastrointestinal/Abdominal: normal bowel sounds, non tender, soft, no organomegaly Extremity: normal range of motion, non-tender Neurologic: no motor/sensory deficits, alert Skin Exam: normal color, warm/dry Lymphatic: no adenopathy Progress - Progress Progress: 06/03/18 20:28 Vital Signs - 8 hr 06/03/18 06/03/18 06/03/18 19:00 19:15 19:19 Temperature 983.7 F H 98.7 F Pulse Rate [ 60 60 monitor] Respiratory 18 18 Rate Blood Pressure 158/98 [Left Arm] O2 Sat by Pulse 98 Oximetry 06/03/18 19:39 Temperature Pulse Rate [ monitor] Respiratory Rate Blood Pressure 87/63 [Left Arm] O2 Sat by Pulse Oximetry - Results/Orders Results/Orders: 06/03/18 19:33 IV Care:Saline Lock per Protoc QSHIFT Laboratory Results - last 24 hr 06/03/18 06/03/18 06/03/18 19:40 20:54 21:47 WBC 11.5 H RBC 4.51 Hgb 13.8 Hct 41.8 MCV 92.5 MCH 30.5 MCHC 33.0 RDW 14.3 Plt Count 258 MPV 8.7 Absolute Neuts (auto) 7.00 H Absolute Lymphs (auto) 3.40 Absolute Monos (auto) 0.80 Absolute Eos (auto) 0.30 Absolute Basos (auto) 0.10 Neutrophils % 60.9 Lymphocytes % 29.4 Monocytes % 6.8 Eosinophils % 2.2 Basophils % 0.7 PT 9.1 INR 0.91 PTT (SP) 23.2 Sodium 139 Potassium 3.9 Chloride 104 Carbon Dioxide 26 Anion Gap 12.9 BUN 16 Creatinine 0.88 BUN/Creatinine Ratio 18.2 Random Glucose 87 Serum Osmolality 278.1 Calcium 9.2 Magnesium 2.0 Total Bilirubin 0.6 Direct Bilirubin 0.2 Indirect Bilirubin 0.4 AST 18 ALT 9 L Alkaline Phosphatase 101 Creatine Kinase 58 CK-MB (CK-2) 1.0 CK-MB (CK-2) % Not Reportable Troponin I < 0.02 < 0.02 Serum Total Protein 7.3 Albumin 4.0 Urine Color Straw Urine Appearance Clear Urine pH 7.0 Ur Specific Whitt 1.015 Urine Protein Negative Urine Glucose (UA) Negative Urine Ketones Negative Urine Blood Negative Urine Nitrite Negative Urine Bilirubin Negative Urine Urobilinogen 0.2 Ur Leukocyte Esterase Negative Urine RBC 0-1 Urine WBC 0 Ur Epithelial Cells 1-3 Urine Bacteria 0 - EKG/XRAY/CT XRAY: hip - no fractures CT Ordered: Yes - no acute intracranial abnormalities Departure - Departure Clinical Impression: Postural hypotension, History of Meniere's syndrome Fall Qualifiers: Encounter type: initial encounter Qualified Code(s): W19.XXXA - Unspecified fall, initial encounter Contusion of head Qualifiers: Encounter type: initial encounter Contusion of head detail: scalp Qualified Code(s): S00.03XA - Contusion of scalp, initial encounter Time of Disposition: 22:11 Disposition: Discharge to Home or Self Care Condition: Fair Departure Forms: ED Discharge - Pt. Copy, Patient Portal Self Enrollment Referrals: Florian Chinchilla MD [Primary Care Provider] - 1-2 Weeks Home Medications: Ambulatory Orders Alprazolam 0.25 mg PO PRN 01/08/14 Alprazolam [Xanax] 0.25 mg PO .[id number] PRN 01/08/14 Amlodipine Besylate 5 mg PO DAILY 01/08/14 Calcium Carbonate-Vitamin D [Calcium 600+D 600-400 mg-Unit] 2 tab PO DAILY 01/08 Hydrochlorothiazide 12.5 mg PO DAILY 01/08/14 Levothyroxine Sodium 175 mcg PO DAILY 01/08/14 Memantine [Namenda] 10 mg PO DAILY 01/08/14 Metoprolol Succinate [Metoprolol Succinate ER] 100 mg PO DAILY 01/08/14 Omeprazole 20 mg PO BID 01/08/14 Valsartan [Diovan] 320 mg PO DAILY 01/08/14 Venlafaxine Xr [Effexor Xr] 150 mg PO DAILY 01/08/14 HYDROcodone 5MG/APAP 325MG [[place] 5/325] 1 ea PO .Q4H PRN #16 tab 03/19/14 Rivaroxaban [Xarelto] 10 mg PO QD #8 tab 06/04/15 Famotidine 20 mg PO BID #60 tab 06/12/17 Sucralfate Tab [Carafate Tab] 1 gm PO QID #120 tab 06/12/17 Additional Instructions: Return to Emergency room as needed;Continue with all home medications ;follow up with primary Md 2017
[2018-06-03] MEDS ORDERED: SODIUM CHLORIDE 0.9% 1000ML 1,000 ML IVS ONE (19:38)
--- NOTE | 2018-06-03 20:13 | RAD ---
EXAM DESCRIPTION: Chest,1 View CLINICAL HISTORY: pain COMPARISON: Chest radiograph dated January 08, 2014 TECHNIQUE: Single frontal view of the chest FINDINGS: There is tortuosity of thoracic aorta. Cardiomediastinal silhouette and pulmonary vascularity are within normal limits. Minimal linear opacities in the bilateral lung bases most likely represent subsegmental atelectasis. Otherwise, lungs show no confluent pulmonary infiltrates. Costophrenic angles are sharp. No pneumothorax. Visualized osseous structures show no destructive lesions. IMPRESSION: 1. No radiographic evidence for acute cardiopulmonary process. 2. Other findings as above. Electronically signed by: Juan David Tai MD 06/03/2018 8:11 PM CDT
--- NOTE | 2018-06-03 20:23 | CT ---
EXAM DESCRIPTION: Head CLINICAL HISTORY: 62 years Female fell/dizzy/head contusion COMPARISON: 06/04/2017 and 04/28/2012 Technique: Contiguous axial images of the brain were obtained without the administration of intravenous contrast. This exam was performed according to our departmental dose-optimization program which includes use of Automated Exposure Control, adjustment of the mA and/or kV according to patient size and/or use of iterative reconstruction technique. Findings: Brain: No acute intracranial hemorrhage. No territorial infarct. No mass effect. Moderate periventricular and subcortical white matter low-attenuation most suggestive of chronic small vessel disease, stable when compared to previous study dating back to 2011. Again noted, old lacunar infarct in the left basal ganglia. Ventricles: Within normal limits in size Bones: No acute osseous finding. Paranasal sinuses: Minimal mucosal thickening at the left sphenoid sinus, similar to previous study. Mastoid air cells: Well aerated. Soft tissues: Mild left frontal soft tissue thickening. Baseball Coach view shows no additional significant finding. IMPRESSION: Stable appearance of the brain without interval post traumatic intracranial finding. Electronically signed by: Marlen Cummings MD 06/03/2018 8:22 PM CDT
--- NOTE | 2018-06-03 20:24 | RAD ---
EXAM: 2 VIEWS RIGHT HIP and AP PELVIS RADIOGRAPHS CLINICAL INDICATION: Pain. COMPARISON: None. FINDINGS: Mild osteoarthritis superiorly in the right hip joint. No fractures, dislocations or radiographic evidence of right hip avascular necrosis. Mild degenerative disease in the sacroiliac joints and pubic symphysis. No lytic or blastic bone lesions. IMPRESSION: Mild osteoarthritis in the right hip joint as well as osteoarthritis in the sacroiliac joints and pubic symphysis. No fracture or avascular necrosis. Electronically signed by: Beka Orr MD 06/03/2018 8:22 PM CDT
--- NOTE | 2018-06-03 20:28 | RAD ---
EXAM DESCRIPTION: Pelvis,2 or More Views CLINICAL HISTORY: 62 years Female, pain COMPARISON: None. FINDINGS: Single frontal view of the pelvis. Bilateral hip joint alignment appears maintained. No evidence of fracture. Pubic symphysis and bilateral SI joints are without acute finding. Mild degenerative changes of the right hip joint with joint space narrowing, subchondral cysts and osteophytes. IMPRESSION: 1. No acute osseous finding of the pelvis. 2. Mild degenerative changes of the right hip joint. Electronically signed by: Marlen Cummings MD 06/03/2018 8:27 PM CDT
[2018-06-03 22:31] VITALS: BP 163/95; O2SAT 94
== END 2018-06-03 22:31 | disposition home or self-care (01) ==
LOC: ER 19:00
DX: S00.03XA Contusion of scalp, initial encounter (principal); R42 Dizziness and giddiness; I95.1 Orthostatic hypotension; H81.09 Meniere's disease, unspecified ear; M16.11 Unilateral primary osteoarthritis, right hip; F32.9 Major depressive disorder, single episode, unspecified; I10 Essential (primary) hypertension; E07.9 Disorder of thyroid, unspecified; E11.9 Type 2 diabetes mellitus without complications; Z87.891 Personal history of nicotine dependence; Z85.828 Personal history of other malignant neoplasm of skin; Z79.899 Other long term (current) drug therapy; Z79.01 Long term (current) use of anticoagulants; W01.190A Fall on same level from slipping, tripping and stumbling with subsequent striking against furniture, initial encounter
CPT/HCPCS: 36415; 70450; 71045; 72190; 73502; 80048; 80076; 81001; 82550; 82553; 84484; 85025; 85610; 85730; J7030

== ENCOUNTER → 2018-07-12 | Outpatient (CLI) | payer MEDICARE, MEDICAID | LOC: GMAJ 11:30 | PROVIDERS: ATTEND Family Medicine | DX: E53.8 Deficiency of other specified B group vitamins (principal); E03.9 Hypothyroidism, unspecified ==

== ENCOUNTER → 2018-08-11 | Outpatient (CLI) | payer MEDICARE, MEDICAID | LOC: GRHH 11:14 | PROVIDERS: ATTEND Family Medicine | DX: E03.9 Hypothyroidism, unspecified (principal) ==

== ENCOUNTER 2018-08-19 16:00 | Observation (INO) | payer MEDICARE, MEDICAID ==
[2018-08-19] MEDS ORDERED: SODIUM CHLORIDE 0.9% (FLUSH) 10 ML SYG IV PRN ×2 (16:11→22:14)
[2018-08-19] MEDS ORDERED: ONDANSETRON INJ 4 MG/2 ML VIAL IV ONE (16:11)
[2018-08-19] MEDS ORDERED: ASPIRIN TABLET 325 MG TAB PO ONE (16:11)
[2018-08-19] MEDS: NITROGLYCERIN 0.4 MG 25 EA TAB SL ONE ×2 (16:12→17:12)
--- NOTE | 2018-08-19 16:17 | ED.PDOC ---
History of Present Illness - General Chief Complaint: Chest Pain/CT Time Seen by Provider: 08/19/18 16:10 Source: patient Exam Limitations: no limitations - History of Present Illness Timing/Duration: 1/2 hour Location: substernal Activities at Onset: none Prior Chest Pain/Cardiac Workup: no prior chest pain Improving Factors: nothing Worsening Factors: nothing Nitro Today/Relief: no nitro taken today Aspirin Treatment Today: no aspirin today Associated Symptoms: nausea/vomiting, shortness of breath Allergies/Adverse Reactions: Allergies NO KNOWN ALLERGY Allergy (Verified 06/12/17 18:03) Home Medications: Ambulatory Orders Alprazolam 0.25 mg PO PRN 01/08/14 Alprazolam [Xanax] 0.25 mg PO .[id number] PRN 01/08/14 Amlodipine Besylate 5 mg PO DAILY 01/08/14 Calcium Carbonate-Vitamin D [Calcium 600+D 600-400 mg-Unit] 2 tab PO DAILY 01/08/14 Hydrochlorothiazide 12.5 mg PO DAILY 01/08/14 Levothyroxine Sodium 175 mcg PO DAILY 01/08/14 Memantine [Namenda] 10 mg PO DAILY 01/08/14 Metoprolol Succinate [Metoprolol Succinate ER] 100 mg PO DAILY 01/08/14 Omeprazole 20 mg PO BID 01/08/14 Valsartan [Diovan] 320 mg PO DAILY 01/08/14 Venlafaxine Xr [Effexor Xr] 150 mg PO DAILY 01/08/14 HYDROcodone 5MG/APAP 325MG [[place] 5/325] 1 ea PO .Q4H PRN #16 tab 03/19/14 Rivaroxaban [Xarelto] 10 mg PO QD #8 tab 06/04/15 Famotidine 20 mg PO BID #60 tab 06/12/17 Sucralfate Tab [Carafate Tab] 1 gm PO QID #120 tab 06/12/17 Review of Systems - Review of Systems Constitutional: Denies: chills, fever EENTM: States: no symptoms reported Respiratory: States: short of breath. Denies: cough Cardiology: States: chest pain, other - PRESSURE, RADIATES TO BACK. Denies: palpitations, syncope Gastrointestinal/Abdominal: States: nausea. Denies: vomiting Genitourinary: States: no symptoms reported Musculoskeletal: States: back pain. Denies: neck pain Skin: States: no symptoms reported Neurological: States: no symptoms reported Endocrine: States: no symptoms reported Hematologic/Lymphatic: States: no symptoms reported Past Medical History (General) - Patient Medical History Hx Seizures: No Hx Stroke: No Hx Dementia: No Hx Asthma: No Hx of COPD: No Hx Cardiac Disorders: No Hx Congestive Heart Failure: No Hx Pacemaker: No Hx Hypertension: Yes Hx Thyroid Disease: Yes Hx Diabetes: Yes - Type 2 Hx Gastroesophageal Reflux: No Hx Renal Disease: No Hx Cancer: Yes - skin cancers Hx of HIV: No Hx Hepatitis C: No Hx MRSA: No MRSA Source:: Wound - Vaccination History Hx Tetanus, Diphtheria Vaccination: Yes Hx Influenza Vaccination: Yes - 2017 Hx Pneumococcal Vaccination: No - Social History Hx Tobacco Use: Yes Hx Chewing Tobacco Use: No Hx Alcohol Use: No Hx Substance Use: No Hx Substance Use Treatment: No Hx Depression: Yes Hx Physical Abuse: No Hx Emotional Abuse: No Hx Suspected Abuse: No - Female History Patient : No Family Medical History - Family History Father Living Status: Age at (years of age): 57 Hx Family Stroke: Yes Hx Cardiac Disease: Yes Mother Living Status: Age at (years of age): 39 Hx Family Asthma: Yes Hx Family Congestive Heart Failure: Yes Physical Exam - Physical Exam General Appearance: Alert, Obese Eyes, Ears, Nose, Throat Exam: PERRL/EOMI, normal ENT inspection, other - EDENTULOUS Neck: non-tender, full range of motion, supple Respiratory: lungs clear, normal breath sounds Cardiovascular/Chest: regular rate, rhythm, no murmur Gastrointestinal/Abdominal: normal bowel sounds, non tender, soft, no organomegaly Extremity: normal range of motion, non-tender, normal inspection Neurologic: alert, normal mood/affect Skin Exam: normal color, warm/dry Lymphatic: no adenopathy Progress - Progress Progress: 08/19/18 17:13 FEELS BETTER AFTER NTG. PAIN 2/10 WILL REPEAT 08/19/18 17:43 PAIN 0/10. DBP 104, WILL GIVE LABETALOL. D/W MECHE ASHLEY WILL ADMIT - EKG/XRAY/CT EKG: Sinus - RATE 62, LAD, , nonspecific ST T wave Chg - NAIP, , Unchanged from - 06/12/17 XRAY: chest - DEREK - Additional EKG/XRAY/Consults EKG #2: Kareem - RATE 53, LAD, , Sinus, nonspecific ST T wave Chg - NAIP, , Unchanged from - 08/19/2018 1555, EXCEPT FOR RATE Departure - Departure Clinical Impression: Substernal chest pain, Diabetes 1.5, managed as type 2 Hypertension Qualifiers: Hypertension type: essential hypertension Qualified Code(s): I10 - Essential (primary) hypertension Disposition: Admit Patient Condition: Good Departure Forms: ED Discharge - Pt. Copy, Patient Portal Self Enrollment Instructions: DI for Chest Pain Referrals: Florian Chinchilla MD [Primary Care Provider] - 1-2 Weeks Home Medications: Ambulatory Orders Alprazolam 0.25 mg PO PRN 01/08/14 Alprazolam [Xanax] 0.25 mg PO .[id number] PRN 01/08/14 Amlodipine Besylate 5 mg PO DAILY 01/08/14 Calcium Carbonate-Vitamin D [Calcium 600+D 600-400 mg-Unit] 2 tab PO DAILY 01/08/14 Hydrochlorothiazide 12.5 mg PO DAILY 01/08/14 Levothyroxine Sodium 175 mcg PO DAILY 01/08/14 Memantine [Namenda] 10 mg PO DAILY 01/08/14 Metoprolol Succinate [Metoprolol Succinate ER] 100 mg PO DAILY 01/08/14 Omeprazole 20 mg PO BID 01/08/14 Valsartan [Diovan] 320 mg PO DAILY 01/08/14 Venlafaxine Xr [Effexor Xr] 150 mg PO DAILY 01/08/14 HYDROcodone 5MG/APAP 325MG [[place] 5/325] 1 ea PO .Q4H PRN #16 tab 03/19/14 Rivaroxaban [Xarelto] 10 mg PO QD #8 tab 06/04/15 Famotidine 20 mg PO BID #60 tab 06/12/17 Sucralfate Tab [Carafate Tab] 1 gm PO QID #120 tab 06/12/17 Decision To Admit - Decistion To Admit Decision to Admit Date: 08/19/18 Decision to Admit Time: 17:45
--- NOTE | 2018-08-19 16:54 | RAD ---
EXAM: Chest,1 View CLINICAL INDICATION: Chest pain COMPARISON: 06/03/2018 FINDINGS: A single view of the chest was obtained. The heart size is normal. The pulmonary vascularity is unremarkable. The lungs are clear. There is no consolidation, infiltrate, pleural effusion, or pneumothorax. IMPRESSION: No evidence of active pulmonary disease. Electronically signed by: Jose Lo MD 08/19/2018 4:53 PM TAX EXAMINER
[2018-08-19] MEDS ORDERED: LABETALOL INJ 5 MG/ML VIAL IV ONE (17:41)
--- NOTE | 2018-08-19 21:00 | HP ---
SUPERVISING PHYSICIAN: Florian Chinchilla MD CHIEF COMPLAINT: Chest pain. HISTORY OF PRESENT ILLNESS: Ms. Nolan is a 63 year-old female patient who presented to the Emergency Room today after she started experiencing a sudden onset of substernal chest pain that radiated into her back and into her left arm associated with some shortness of breath but was negative for any diaphoresis. She does have a history of diabetes and hypertension. She noted the pain was sharp and she rated it 9 out of 10. She reports that over the last several weeks she has increased her smoking habits as well as has been under some undo excessive stress levels and dealing with family members. She also notes she has been having some increased reflux symptoms in the last several days prior to onset of the current chest pain. She notes she was not exerting at the time of the onset of chest pain which occurred around 1600. In the Emergency Room she was given 2 Nitroglycerin that did result in a complete relief of her pain symptoms. Initial EKG in the Emergency Room showed a sinus rhythm at [address] or T-wave changes but unchanged from a previous EKG on 06/12/17. Initial troponin was less than 0.02 and chest x-ray was without any evidence of acute active pulmonary disease. She had a second EKG done while in the Emergency Room which showed a bradycardic rhythm at 53 and again, unchanged from previous on initial admission except for the rate. She was without any pain and will now be admitted to the hospital for further rule of an acute myocardial infarction. She was placed in observation in stable condition. PAST MEDICAL HISTORY: 1. Mnire's disease. 2. Hypertension. 3. Hypothyroidism. 4. Gastroesophageal reflux disease. 5. Gluteus medius type 2, diet controlled. 6. Chronic nicotine addiction in a chronic smoker. PAST SURGICAL HISTORY: 1. Hysterectomy. 2. Skin graft to the face. 3. Sebaceous cyst removal. CURRENT MEDICATIONS: 1. Venlafaxine 30 mg daily. 2. Vitamin B12 injections weekly, 1000 mcg. 3. Celebrex 200 mg daily. 4. Losartan potassium 100 mg daily. 5. Xanax 0.25 daily. 6. Amlodipine 5 mg daily. 7. Levothyroxine 200 mg daily. 8. Metoprolol Succinate extended release 100 mg daily. 9. Omeprazole 40 mg daily. 10. Diovan 320 mg daily. ALLERGIES: No known drug allergies. FAMILY HISTORY: Mother at age 39 from complications of asthma. Father at age 59 secondary to heart disease, hypertension, seizures and diabetes. She has 6 brothers and sisters who have chronic illnesses to include diabetes, hypertension, one sibling had kidney cancer, another sibling had a liver transplant. She has 2 children, a daughter and a son. Her daughter has hypertension and Parkinson's syndrome. Her son has a heart murmur and is bipolar and schizophrenic. SOCIAL HISTORY: The patient is disabled. She lives with her granddaughters and she is since 2000. She does currently smoke about a pack every other week she says. She drinks rarely which usually means a small glass of wine. She denies any illicit drug use. REVIEW OF SYSTEMS: CONSTITUTIONAL: Negative for chills or fevers or unintentional weight changes. . HEENT: Negative for nasal congestion, earache or sore throat. RESPIRATORY: Positive for shortness of breath with the initial onset of chest pain but negative for any coughing or wheezing. CARDIOVASCULAR: As noted in history of present illness. Positive chest pain described as sharp pressure radiating to the back and into the left arm.. Negative for any palpitations or syncopal episodes. GASTROINTESTINAL: Positive for nausea, denied vomiting , abdominal pain, constipation or diarrhea. GENITOURINARY: Negative for dysuria, hematuria, polyuria. NEUROLOGICAL: Negative for ataxia, seizures, vision changes, headache or any focal sensory deficits. HEMATOLOGIC: Negative for easy bleeding or bruising. PHYSICAL EXAMINATION: VITAL SIGNS: Temperature on admission was 99.5, pulse 62, she was hypertensive at 175/107 initially with a heart rate of 28, saturation 97% on room air. After she became pain free, blood pressure was at 151/86. Heart rate 52. She was showing respirations of 20 and saturation 95% on room air. Admission weight 102.5 kg. GENERAL: The patient is alert, well-hydrated, moderately obese, appears to be in no acute distress.. HEENT: Tympanic membranes clear bilaterally. Oropharynx, she is edentulous, there were no lesions. NECK: Supple, non-tender ,full range of motion. Oral mucosa was pink and most.. CHEST: Lungs are clear to auscultation without rhonchi, rales, or wheezes.. CARDIOVASCULAR: Regular rate and rhythm without appreciable murmurs, rubs, or gallops. ABDOMEN: Obese, soft, nontender, positive bowel sounds. EXTREMITIES: No cyanosis, clubbing, or edema. She moves all extremities ad skylar. NEUROLOGIC: Cranial nerves II through XII are grossly intact. Facial features are symmetrical. She is alert and oriented x3. SKIN: [place], warm and dry. No lesions or rashes noted. LYMPHATIC SYSTEM: Without any notable lymphadenopathy. LABORATORY: CBC showed was within normal limits. Coagulation studies showed normal PT/PTT. Chemistries showed normal electrolytes. BUN 13, creatinine 0.76, calcium 8.9, magnesium normal at 2.0, liver functions all within normal limits except for AST that was slightly elevated at 45. Troponin less than 0.02 initially. Lipase pending. BNP slightly elevated at 170. Urinalysis pending. RADIOLOGY: Chest x-ray in the Emergency Room per radiology interpretation showed no evidence of .active pulmonary disease. EKG initially on presentation in the Emergency Room she showed a normal sinus rhythm at a rate of [address]-T wave changes and unchanged compared to EKG on 06/15/17. ASSESSMENT: 1. Acute substernal chest pain with no acute findings on radiographic studies. Troponin negative initially and EKG showing to be without any evidence of myocardial injury requiring further cardiac telemetry for rule out of acute coronary syndrome. 2. Diabetes mellitus type 2, diet controlled. 3. Hypertension showing to be poorly controlled initially no admission. 4. Chronic gastroesophageal reflux disease. 5. Hypothyroidism. PLAN: The patient is going to be placed in observation for further cardiac telemetry monitoring and repeat cardiac enzymes x2 with EKGs to further rule out any acute myocardial infarction. She will be on DVT prophylaxis with Lovenox as per protocol. We will resume home medications once those have been updated and verified in the computer. Will anticipate her length of stay to be 1 to 2 days with probable discharge tomorrow as long as everything is showing to be negative. We will repeat labs in the morning and once the patient is discharged she will need close clinical followup with Dr. Chinchilla, her primary care physician, to further have evaluation with a candy cooker helper. #[id number] [facility]
[2018-08-19] MEDS ORDERED: MORPHINE SULFATE INJ 10 MG/ML VIAL IV PRN (22:14)
[2018-08-19] MEDS ORDERED: ACETAMINOPHEN 325 MG TAB PO PRN (22:14)
[2018-08-19] MEDS ORDERED: ASPIRIN (CHEWABLE) 81 MG TAB PO ONE (22:14)
[2018-08-19] MEDS ORDERED: NITROGLYCERIN 0.4 MG 25 EA TAB SL PRN (22:14)
[2018-08-19] MEDS ORDERED: IV SET AND CAP CHANGE INJ INJ SCH (22:30)
[2018-08-20] MEDS ORDERED: ASPIRIN TABLET 325 MG TAB PO SCH (09:00)
[2018-08-20] MEDS ORDERED: ALPRAZolam 0.5 MG TAB PO ONE (09:00)
[2018-08-20] MEDS ORDERED: SODIUM CHLORIDE 0.9% (FLUSH) 10 ML SYG IV SCH (09:00)
[2018-08-20] MEDS ORDERED: LEVOTHYROXINE SODIUM 0.1 MG TAB PO SCH (09:00)
[2018-08-20] MEDS ORDERED: amLODIPine BESYLATE 5 MG TAB PO SCH (09:00)
[2018-08-20] MEDS ORDERED: OMEPRAZOLE CAP 20 MG CAP PO SCH (09:00)
[2018-08-20] MEDS ORDERED: CELECOXIB 100 MG CAP PO SCH (09:00)
[2018-08-20] MEDS ORDERED: VENLAFAXINE HCL PO SCH (09:00)
[2018-08-20] MEDS ORDERED: ALPRAZolam 0.25 MG TAB PO SCH (09:00)
[2018-08-20] MEDS ORDERED: METOPROLOL SUCCINATE XL 100 MG TAB PO SCH (09:00)
[2018-08-20] MEDS ORDERED: LOSARTAN POTASSIUM 100 MG TAB PO SCH (09:00)
[2018-08-20] MEDS ORDERED: VALSARTAN 80 MG TAB PO SCH (09:00)
[2018-08-20 10:04] VITALS: BP 126/82; TEMP 97.5; O2SAT 98
--- NOTE | 2018-09-04 21:04 | DS ---
SUPERVISING PHYSICIAN: Td Romero M.D. ADMISSION DIAGNOSIS: 1. Acute substernal chest pain with no acute findings on radiographic studies. Troponin negative initially and EKG showing to be without any evidence of myocardial injury requiring further cardiac telemetry for rule out of acute coronary syndrome. 2. Diabetes mellitus type 2, diet controlled. 3. Hypertension showing to be poorly controlled initially no admission. 4. Chronic gastroesophageal reflux disease. 5. Hypothyroidism. DISCHARGE DIAGNOSIS: 1. Chest pain, uncertain etiology, but no evidence of acute myocardial infarction with troponins being negative and no EKG changes. 2. Diabetes mellitus type 2, controlled diet. 3. Hypertension poorly controlled prior to admission. 4. Gastroesophageal reflux disease. 5. Hypothyroidism. REASON FOR HOSPITALIZATION: Ms. Nolan is a 63 year-old female patient who presented to the Emergency Room today after she started experiencing a sudden onset of substernal chest pain that radiated into her back and into her left arm associated with some shortness of breath but was negative for any diaphoresis. She does have a history of diabetes and hypertension. She noted the pain was sharp and she rated it 9 out of 10. She reports that over the last several weeks she has increased her smoking habits as well as has been under some undo excessive stress levels and dealing with family members. She also notes she has been having some increased reflux symptoms in the last several days prior to onset of the current chest pain. She notes she was not exerting at the time of the onset of chest pain which occurred around 1600. In the Emergency Room she was given 2 Nitroglycerin that did result in a complete relief of her pain symptoms. Initial EKG in the Emergency Room showed a sinus rhythm at [address] or T-wave changes but unchanged from a previous EKG on 06/12/17. Initial troponin was less than 0.02 and chest x-ray was without any evidence of acute active pulmonary disease. She had a second EKG done while in the Emergency Room which showed a bradycardic rhythm at 53 and again, unchanged from previous on initial admission except for the rate. She was without any pain and will now be admitted to the hospital for further rule of an acute myocardial infarction. She was placed in observation in stable condition. LABORATORY STUDIES: CBC on admission showed normal limits with a white count of 8,200. No left shift. Coagulation studies showed normal PT and PTT. Chemistries: Electrolytes were normal at admission. Liver functions are showing all within normal limits except for a slightly elevated AST at 45. She had cardiac enzymes that were done times 3 which were all less than 0.02. Lipase was slightly elevated initially on admission at 79 but prior to discharge was normalized at 47. Lipid panel showed triglycerides of 63, cholesterol 130 with LDL 65 and HDL 47. EKG showed normal sinus rhythm with no acute changes in regards to ST or T wave elevation or T wave inversion indicating acute myocardial infarction or damage. On the morning of discharge, final EKG was showing normal sinus rhythm. HOSPITAL COURSE: Ms. Nolan was admitted on 08/19/18 for chest pain rule out. She was on telemetry continuous. She had cardiac enzymes run in serial per protocol with no elevation. She had no return of her pain and on the day of discharge was felt clinically stable enough to discharge to continue with outpatient management. PLAN: Ms. Nolan was discharged on 08/20/18 with instructions to followup with Dr. Chinchilla as scheduled in 1 to 2 weeks and for a cardiology appointment that could be arranged from Dr. Chinchilla' office. She was to resume all of her medications prior to hospitalization. She was extensively educated on smoking cessation. She was told to return to the hospital should any concerning symptoms. Medications at discharge included: 1. Nitro tablets 0.4 mg sublingual times 3 for chest pain, 1 bottle. No refills. 2. Aspirin 81 mg, #30. No refills. Diet at discharge was diabetic diet as tolerated. Activity is increase as tolerated. Condition at discharge was stable and improving. DISPOSITION: The patient is discharged to the care of family. [facility][id number] [facility]
== END 2018-08-20 11:00 | disposition home or self-care (01) ==
LOC: ER 16:00 → MS 20:59
PROVIDERS: ADMIT Nurse Practitioner Family; ATTEND Nurse Practitioner Family
DX: R07.2 Precordial pain (principal); R06.02 Shortness of breath; E11.9 Type 2 diabetes mellitus without complications; I10 Essential (primary) hypertension; K21.9 Gastro-esophageal reflux disease without esophagitis; E03.9 Hypothyroidism, unspecified; R11.2 Nausea with vomiting, unspecified; F17.210 Nicotine dependence, cigarettes, uncomplicated; H81.09 Meniere's disease, unspecified ear; Z79.899 Other long term (current) drug therapy; Z82.49 Family history of ischemic heart disease and other diseases of the circulatory system
CPT/HCPCS: 96374; 96375; J2405; 80061; 36415 ×2; 82550; 80048; 82553; 85025; 85730; 85610; 84484 ×3; 80076; 83690 ×2; 83880; 71045; 94760 ×2; 99406; 99285; 93005 ×2

== ENCOUNTER 2019-05-09 20:42 | Emergency (ER) | payer MEDICARE, MEDICAID ==
[2019-05-09] MEDS ORDERED: HYDROcodone 5MG/APAP 325MG 1 EA TAB PO ONE (21:06)
--- NOTE | 2019-05-09 21:37 | ED.PDOC ---
History of Present Illness - General Stated Complaint: right ankle pain Time Seen by Provider: 05/09/19 20:59 Source: patient, RN notes reviewed, Vital Signs reviewed, RN/MD - History of Present Illness Initial Comments: Patient is a 63 yo F presenting with right ankle pain after an inversion injury and falling. She normally ambulates with a cane. She denies hitting her head or loss of consciousness. She has been ambulating with pain. She denies any numbness or weakness. She denies any other injuries following the fall. Occurred: this evening Allergies/Adverse Reactions: Allergies NO KNOWN ALLERGY Allergy (Verified 06/12/17 18:03) Home Medications: Ambulatory Orders RX: Alprazolam [Xanax] 0.5 mg PO DAILY 01/08/14 RX: Amlodipine Besylate 5 mg PO DAILY 01/08/14 RX: Levothyroxine Sodium 200 mcg PO DAILY 01/08/14 RX: Metoprolol Succinate [Metoprolol Succinate ER] 100 mg PO DAILY 01/08/14 RX: Omeprazole 40 mg PO DAILY 01/08/14 RX: Valsartan [Diovan] 320 mg PO DAILY 01/08/14 RX: Celecoxib 200 mg PO DAILY 08/19/18 RX: Cyanocobalamin Inj [Vitamin B-12 Inj] 1,000 mcg IM MONTHLY 08/19/18 RX: Losartan Potassium 100 mg PO DAILY 08/19/18 RX: Nitroglycerin 0.4 mg Tab [Nitrostat] 1 ea SL Q5MIN PRN #1 bttl 08/20/18 Venlafaxine HCl [Venlafaxine HCl ER] 150 mg PO DAILY 08/20/18 Acetaminophen W/ Codeine [Tylenol W/ CODEINE #3] 1 ea PO Q8HR PRN #10 05/09/19 Review of Systems - Review of Systems Constitutional: States: no symptoms reported EENTM: States: no symptoms reported Respiratory: States: no symptoms reported Cardiology: States: no symptoms reported Gastrointestinal/Abdominal: States: no symptoms reported Musculoskeletal: States: joint pain, joint swelling Skin: States: no symptoms reported Past Medical History (General) - Patient Medical History Hx Seizures: No Hx Stroke: No Hx Dementia: No Hx Asthma: No Hx of COPD: No Hx Cardiac Disorders: No Hx Congestive Heart Failure: No Hx Pacemaker: No Hx Hypertension: Yes Hx Thyroid Disease: Yes Hx Diabetes: Yes - Type 2 Hx Gastroesophageal Reflux: No Hx Renal Disease: No Hx Cancer: Yes - skin cancers Hx of HIV: No Hx Hepatitis C: No Hx MRSA: No MRSA Source:: Wound - Vaccination History Hx Tetanus, Diphtheria Vaccination: Yes Hx Influenza Vaccination: Yes - 2017 Hx Pneumococcal Vaccination: No - Social History Hx Tobacco Use: Yes Hx Chewing Tobacco Use: No Hx Alcohol Use: No Hx Substance Use: No Hx Substance Use Treatment: No Hx Depression: Yes Hx Physical Abuse: No Hx Emotional Abuse: No Hx Suspected Abuse: No - Female History Patient : No Physical Exam - Physical Exam General Appearance: Alert, Comfortable, No apparent distress Head Injury: no evidence of injury Eye Exam: bilateral normal ENT Exam: hearing grossly normal, no evidence of ENT injury Peripheral Pulses: radial,right: 2+, radial,left: 2+, dorsalis pedis,right: 2+, dorsalis pedis,left: 2+, posterior tibialis,right: 2+, posterior tibialis,left: 2+ Cardiovascular/Respiratory: regular rate, rhythm, no M/R/G, normal peripheral pulses, normal breath sounds, no respiratory distress Gastrointestinal/Abdominal: normal bowel sounds, non tender, soft Extremity Exam: other - Right ankle TTP over lateral malleolus. TTP over right fibular head. Swelling to R ankle. no other TTP. Neurologic: citrus fruit packer II-XII nml as tested, no motor/sensory deficits, alert, oriented x 3 Progress - Progress Progress: DDx: ankle sprain, fibula fx, calcaneus fx 05/10/19 06:07 Patient presents for evaluation of RLE injury. She was neurovascularly intact. She was otherwise pain free and had no injuries. She had no TTP except for lateral malleolus and proximal fibular head. She had no foot tenderness. Imaging was found to be negative. Patient will be discharged home with Rx for Tylenol #3 for breakthrough pain. - Results/Orders Results/Orders: XR Right Tib Fib: No acute fracture or dislocation XR Right Ankle: No acute fx or dislocation Departure - Departure Clinical Impression: Ankle sprain Time of Disposition: 21:35 Disposition: Discharge to Home or Self Care Condition: Good Departure Forms: ED Discharge - Pt. Copy, Patient Portal Self Enrollment Instructions: Ankle Sprain (DC) Diet: resume usual diet Activity: no pushing/pulling with affected limb Referrals: Florian Chinchilla MD [Primary Care Provider] - 1-2 Weeks Prescriptions: Acetaminophen W/ Codeine [Tylenol W/ CODEINE #3] 1 ea PO Q8HR PRN #10 PRN Reason: Pain Home Medications: Ambulatory Orders RX: Alprazolam [Xanax] 0.5 mg PO DAILY 01/08/14 RX: Amlodipine Besylate 5 mg PO DAILY 01/08/14 RX: Levothyroxine Sodium 200 mcg PO DAILY 01/08/14 RX: Metoprolol Succinate [Metoprolol Succinate ER] 100 mg PO DAILY 01/08/14 RX: Omeprazole 40 mg PO DAILY 01/08/14 RX: Valsartan [Diovan] 320 mg PO DAILY 01/08/14 RX: Celecoxib 200 mg PO DAILY 08/19/18 RX: Cyanocobalamin Inj [Vitamin B-12 Inj] 1,000 mcg IM MONTHLY 08/19/18 RX: Losartan Potassium 100 mg PO DAILY 08/19/18 RX: Nitroglycerin 0.4 mg Tab [Nitrostat] 1 ea SL Q5MIN PRN #1 bttl 08/20/18 Venlafaxine HCl [Venlafaxine HCl ER] 150 mg PO DAILY 08/20/18 Acetaminophen W/ Codeine [Tylenol W/ CODEINE #3] 1 ea PO Q8HR PRN #10 05/09/19 Comments: Hossein Escoto D.O. James #[id number]
--- NOTE | 2019-05-09 21:57 | RAD ---
EXAM: XR Right Tibia and Fibula, 2 Views CLINICAL HISTORY: The patient is 63 years old and is Female; Fall. Inversion injury TECHNIQUE: Frontal and lateral views of the right tibia and fibula. COMPARISON: No relevant prior studies available. FINDINGS: BONES/JOINTS: A right knee prosthesis is present. No acute fracture. No dislocation. SOFT TISSUES: Unremarkable. No radiopaque foreign body. IMPRESSION: No acute findings in the right tibia and fibula or surrounding soft tissues. Electronically signed by: Paloma Pal MD 05/09/2019 9:56 PM CDT
--- NOTE | 2019-05-09 21:58 | RAD ---
EXAM DESCRIPTION: Ankle,Right 3 Views CLINICAL HISTORY: 63 years Female Fall. Inversion injury COMPARISON: None TECHNIQUE: Three images of the right ankle were obtained. FINDINGS: No fracture seen. Marked lateral soft tissue swelling. Moderate bony demineralization. No erosive or lytic lesions seen. Small calcaneal spur. IMPRESSION: No acute fracture or dislocation seen. Lateral soft tissue swelling. Moderate osteopenia. Electronically signed by: Kizzy aClvillo MD 05/09/2019 9:56 PM CDT
[2019-05-10 03:01] VITALS: BP 176/66; TEMP 98.8; O2SAT 98
== END 2019-05-09 23:59 | disposition home or self-care (01) ==
LOC: ER 20:42
DX: S93.401A Sprain of unspecified ligament of right ankle, initial encounter (principal); F32.9 Major depressive disorder, single episode, unspecified; I10 Essential (primary) hypertension; E07.9 Disorder of thyroid, unspecified; E11.9 Type 2 diabetes mellitus without complications; Z87.891 Personal history of nicotine dependence; Z85.828 Personal history of other malignant neoplasm of skin; Z79.899 Other long term (current) drug therapy; W18.30XA Fall on same level, unspecified, initial encounter; Y93.01 Activity, walking, marching and hiking; Y92.9 Unspecified place or not applicable

== ENCOUNTER → 2019-06-16 | Outpatient (CLI) | payer MEDICARE, MEDICAID ==
--- NOTE | 2019-06-17 20:35 | MRI ---
EXAM DESCRIPTION: Thoracic Spine w/o Contrast: Magnetic Resonance Imaging. CLINICAL HISTORY: WEDGE COMPRESSION FRACTURE OF UNSPEC THORACIC VERTEBRA. Patient fell one month ago. Pain between scapula. COMPARISON: Thoracic spine radiographs 14 June 2019. TECHNIQUE: Multiplanar, multiple standard sequences, non contrast MRI, thoracic spine. FINDINGS: No compression type vertebral body fracture deformity is noted in the thoracic spine or the adjacent cervical or upper lumbar vertebral bodies. No compression type bone marrow edema in the vertebral bodies and no abnormal marrow edema in the posterior elements. T10-T11 disc space loss anterior endplate reactive changes and spurs and superior and inferior Schmorl's nodes. Disc desiccation Disc bulge in the midline impressing the cord to the right of midline with hyper intense T2 weighted annular fissure in the bulging disc segment. The disc may be contacting the right T10 nerve. Moderate right foraminal narrowing and minimal left foraminal narrowing. T7-T8 disc desiccation anterior bulging and endplate reactive changes. Right posterior 3 mm disc bulge abutting the right ventral cord and the right T7 nerve with no canal stenosis. Bilateral hypertrophic facet arthrosis more on the left, and bilateral bulging discs, with moderate to severe left foraminal narrowing and mild right foraminal narrowing. T6-T7: Disc desiccation and minimal disc space loss. Anterior endplate reactive changes. 3 millimeter left paracentral disc bulge impressing on the cord and abutting the left T6 nerve. Minimal canal narrowing. Mild bilateral foraminal narrowing more on the left with mild hypertrophic facet arthrosis bilaterally. T5-T6: Disc desiccation and disc space loss more on the left with endplate reactive changes anterior to the left of midline. Trace anterolisthesis. Left paracentral disc bulge 3 mm abutting the cord and the left T5 nerve. Bilateral hypertrophic facet arthrosis with mild to moderate bilateral foraminal narrowing. Hypertrophic right facet arthrosis at T4-T5 narrowing of the right foramen. Minimal disc desiccation with no bulging and canal unremarkable. Minimal disc desiccation T3-T4 with anterior endplate reactive changes. Minimal posterior bulge. Hypertrophic right facet arthrosis and mild to moderate narrowing of the right foramen. T2-T3: Disc desiccation and disc space loss. Disc bulge in the midline and 5 mm herniation to the right of midline encroaching on the right foramen and the exiting right L2 nerve, with foraminal stenosis. Bilateral thickened posterior ligaments more on the right and hypertrophic right facet arthrosis. Remaining discs with normal signal. Disc spaces are preserved. Canal and foramina are patent. Right convex T5 T10 curvature. Left convex T10 L1 curvature and T4-C5 curvature.. Remaining facet joints are unremarkable. Conus terminates below the imaging margin of the examination.. Cord with normal signal, no compression at other levels. Paravertebral soft tissues minimal muscle atrophy but no soft tissue mass or edema. Normal marrow signal in the remaining vertebral bodies and the posterior elements. Vertebral bodies are not compressed at any level. IMPRESSION: 1. Mild disc protrusion T10-T11 impressing the cord at the right of midline possibly contacting the right T10 nerve as it enters the foramen. Annular fissure in the disc bulge/protrusion. 2. Right side T2-T3 disc herniation encroaching on the right foramen and the exiting right L2 nerve with foraminal stenosis. 3. Left paracentral T5-T6 disc bulge abutting the cord and the left T5 nerve. 4. 3 mm left paracentral disc bulge impressing on the cord and abutting the left C6 nerve. 5. Right posterior 3 mm T7-T8 disc bulge abutting the right ventral cord and the right T7 nerve. Moderate to severe left foraminal narrowing. Bilateral hypertrophic facet arthrosis. Electronically signed by: Luis Almanza MD 06/17/2019 8:34 PM CDT
== END ==
LOC: MRI 13:29
PROVIDERS: ATTEND Family Medicine
DX: S22.000A Wedge compression fracture of unspecified thoracic vertebra, initial encounter for closed fracture (principal); M51.24 Other intervertebral disc displacement, thoracic region; M51.84 Other intervertebral disc disorders, thoracic region

== ENCOUNTER → 2019-12-27 | Outpatient (CLI) | payer MEDICAID, MEDICARE, OTHER | LOC: GMAJ 11:26 | PROVIDERS: ATTEND Family Medicine | DX: E03.9 Hypothyroidism, unspecified (principal); I10 Essential (primary) hypertension; E11.40 Type 2 diabetes mellitus with diabetic neuropathy, unspecified ==

== ENCOUNTER → 2020-10-09 | Outpatient (CLI) | payer OTHER, MEDICAID | LOC: GMAJ 13:00 | PROVIDERS: ATTEND Family Medicine | DX: E03.9 Hypothyroidism, unspecified (principal); I10 Essential (primary) hypertension ==